=== PATIENT | male | born 1985 | race American Indian/Alaskan Native ===

== ENCOUNTER 2019-04-21 19:49 | Emergency (ER) | payer BC ==
--- NOTE | 2019-04-21 19:51 | Emergency Department Report ---
Blank Doc - Documentation Documentation: This is a 33-year-old male that presents for drug addiction. This initial assessment/diagnostic orders/clinical plan/treatment(s) is/are subject to change based on patient's health status, clinical progression and re- assessment by fellow clinical providers in the ED. Further treatment and workup at subsequent clinical providers discretion. Patient/guardians urged not to elope from the ED as their condition may be serious if not clinically assessed and managed. Initial orders include: 1- Patient sent to [facility] for further evaluation and treatment 2- labs 3- UA
[2019-04-21 20:12] LABS: Basophils # (Auto) 0.1 K/mm3 (0.0-0.1); Basophils % (Auto) 2.5 % (0.0-1.8); Eosinophils % (Auto) 0.6 % (0.0-4.3); Hematocrit 43.7 % (35.5-45.6); Hemoglobin 14.8 gm/dl (11.8-15.2); Lymphocytes # (Auto) 1.3 K/mm3 (1.2-5.4); Lymphocytes % (Auto) 21.8 % (13.4-35.0); Mean Corpuscular HGB Conc 34 % (32-34); Mean Corpuscular Volume 94 fl (84-94); Monocytes # (Auto) 0.4 K/mm3 (0.0-0.8); Monocytes % (Auto) 6.8 % (0.0-7.3); Platelet Count 326 K/mm3 (140-440); Red Blood Count 4.67 M/mm3 (3.65-5.03); Red Cell Distribution Width 13.4 % (13.2-15.2)
[2019-04-21 20:33] LABS: BUN/Creatinine Ratio 11; Blood Urea Nitrogen 11 mg/dL (9-20); Calcium 9.4 mg/dL (8.4-10.2); Hemolysis Index 3
--- NOTE | 2019-04-21 20:54 | Emergency Department Report ---
ED Psych HPI - General Chief Complaint: Medical Clearance Stated Complaint: GENERAL ILLNESS Time Seen by Provider: 04/21/19 19:50 Source: patient Mode of arrival: Ambulatory - History of Present Illness Initial Comments: 33 yo M presents to the ED requesting rehab for cocaine and methamphetamine addiction. Last use was earlier today. Pt states this was a relapse. Also reports some depression due to significant life stressors. Denies SI, HI, hallucinations. MD Complaint: other (requesting drug rehab) -: year(s) (10) Associated Psychiatric Symptoms: depression History of same: Yes Quality: getting worse Improves With: none Worsens With: none Context: significant life stressor Associated Symptoms: denies other symptoms Treatments Prior to Arrival: none - Related Data Previous Rx's Medication Instructions Recorded Last Taken Type Aspirin 325 mg PO QDAY #30 tablet 05/24/17 Unknown Rx Famotidine [Pepcid] 20 mg PO BID #15 tablet 05/24/17 Unknown Rx Metoprolol [Lopressor TAB] 12.5 mg PO BID #60 tablet 05/24/17 Unknown Rx diphenhydrAMINE [Benadryl CAP] 25 mg PO Q8H PRN #7 day 05/24/17 Unknown Rx Allergies Allergy/AdvReac Type Severity Reaction Status Date / Time Iodinated Contrast- Oral and Allergy Unknown Verified 05/23/17 04:01 IV Dye ED Review of Systems ROS: Stated complaint: GENERAL ILLNESS Other details as noted in HPI Comment: All other systems reviewed and negative Gastrointestinal: denies: nausea, vomiting Psychiatric: depression. denies: auditory hallucinations, visual hallucinations, homicidal thoughts, suicidal thoughts ED Past Medical Hx - Past Medical History Hx Congestive Heart Failure: No Hx Diabetes: No Hx Psychiatric Treatment: Yes Hx Asthma: No Hx COPD: No Additional medical history: Reactive airway disease, atrial fibrillation - Surgical History Hx Appendectomy: Yes - Social History Smoking Status: Current Every Day Smoker Substance Use Type: Cocaine, Methamphetamines - Medications Home Medications: Home Medications Medication Instructions Recorded Confirmed Last Taken Type Aspirin 325 mg PO QDAY #30 tablet 05/24/17 Unknown Rx Famotidine [Pepcid] 20 mg PO BID #15 tablet 05/24/17 Unknown Rx Metoprolol [Lopressor TAB] 12.5 mg PO BID #60 tablet 05/24/17 Unknown Rx diphenhydrAMINE [Benadryl CAP] 25 mg PO Q8H PRN #7 day 05/24/17 Unknown Rx ED Physical Exam - General Limitations: No Limitations General appearance: alert, in no apparent distress - Head Head exam: Present: atraumatic, normocephalic - Eye Eye exam: Present: normal appearance, PERRL, EOMI - ENT ENT exam: Present: mucous membranes moist - Neck Neck exam: Present: normal inspection - Respiratory Respiratory exam: Present: normal lung sounds bilaterally. Absent: respiratory distress - Cardiovascular Cardiovascular Exam: Present: normal rhythm, tachycardia - GI/Abdominal GI/Abdominal exam: Absent: distended - Extremities Exam Extremities exam: Present: normal inspection - Neurological Exam Neurological exam: Present: alert, oriented X3 - Psychiatric Psychiatric exam: Present: other (sad, tearful) - Skin Skin exam: Present: warm, dry, intact, normal color ED Course Vital Signs 04/21/19 04/21/19 19:50 23:25 Temperature 98.3 F 98.1 F Pulse Rate 120 H 84 Respiratory 18 16 Rate Blood Pressure 160/101 Blood Pressure 141/84 [Left] O2 Sat by Pulse 96 98 Oximetry ED Medical Decision Making - Lab Data Result diagrams: 04/21/19 20:00 04/21/19 20:00 - Medical Decision Making Pt requesting inpatient rehab. Seen and evaluated by mental health business intelligence architect. Pt denies SI, HI, hallucinations. Pt given outpt resources for substance abuse rehab. - Differential Diagnosis substance abuse Critical care attestation.: If time is entered above; I have spent that time in minutes in the direct care of this critically ill patient, excluding procedure time. ED Disposition Clinical Impression: Substance abuse Disposition: DC-01 TO HOME OR SELFCARE Is pt being admited?: No Condition: Stable Instructions: Polysubstance Abuse (ED) Referrals: [facility] [Provider Group] - 3-5 Days BUD BOWDEN MD [Primary Care Provider] - 3-5 Days Time of Disposition: 23:03
[2019-04-21 23:26] VITALS: BP 141/84
== END 2019-04-21 23:25 | disposition home or self-care (01) ==
LOC: ED 19:49
DX: F14.10 Cocaine abuse, uncomplicated (principal); F15.10 Other stimulant abuse, uncomplicated; J45.909 Unspecified asthma, uncomplicated; I48.91 Unspecified atrial fibrillation; F17.200 Nicotine dependence, unspecified, uncomplicated; Z90.49 Acquired absence of other specified parts of digestive tract; Z79.82 Long term (current) use of aspirin; Z79.899 Other long term (current) drug therapy; Z91.041 Radiographic dye allergy status
CPT/HCPCS: 36415; 80048; 80320; 85025; 99284; G0480